=== PATIENT | male | born 1950 | race Caucasian/White ===

== ENCOUNTER 2025-05-07 00:31 | Emergency (ER) | payer MEDICARE, SELFPAY ==
[2025-05-07] VITALS (13 sets, daily range): BP systolic 112–163; BP diastolic 52–63; PULSE 74–103; RESP 16–25; TEMP 36.8–37.3; O2SAT 95–100
--- NOTE | ~2025-05-07 | CT_ITS ---
Clinical Indication: Shortness of breath, tachycardia, chest mass CT Scan of the Chest with Contrast: Technique: Contiguous sections were acquired throughout the chest after intravenous administration of 100 cc of Omnipaque 350. Dose reduction technique was used on this scan by utilizing automated expos ure control and iterative reconstruction technique. The dose-length product (DLP) was 192.14 mGy-cm. Findings: There is no evidence of any significant mediastinal, hilar or axillary lymphadenopathy. There is no f illing defect in the pulmonary arterial tree to suggest pulmonary embolus. There is no evidence of ao rtic dissection or aneurysm. There is no evidence of pleural or pericardial effusion. There is advanced emphysema. There is extensive calcified pleural plaque at the left upper lobe anter iorly and left lower lobe posteriorly. There is mild chronic scarring in the left lung. 9 mm right ap ical pulmonary nodule present (axial image 27). Additional 6 mm right upper lobe nodule present (axia l image 42). There is probable posterior scarring at the right upper lobe/apex. Scattered calcified g ranulomas are noted. Images through the upper abdomen reveal no abnormalities. Impression: No evidence of pulmonary embolus, aortic dissection, or aortic aneurysm. 9 mm right apical pulmonary nodule, indeterminate. According to Fleischner Society criteria, recommen d 3 month follow-up CT versus PET/CT or tissue sampling. Additional 6 mm nodule in the right upper lobe, also indeterminate. Follow-up exam in 6-12 months rec ommended at a minimum. Advanced emphysema with extensive calcified pleural plaques in the left hemithorax and areas of focal scarring, as above. Reviewed, dictated and finalized at [facility]. Impression: No evidence of pulmonary embolus, aortic dissection, or aortic aneurysm. 9 mm right apical pulmonary nodule, indeterminate. According to Fleischner Soci ety criteria, recommend 3 month follow-up CT versus PET/CT or tissue sampling. Additional 6 mm nodule in the right upper lobe, also indeterminate. Follow-up e xam in 6-12 months recommended at a minimum. Advanced emphysema with extensive calcified pleural plaques in the left hemitho rax and areas of focal scarring, as above.
--- NOTE | ~2025-05-07 | XR_ITS ---
Clinical Indication: Shortness of breath, COPD PA and lateral views of the chest: Comparison: None Findings: The there is COPD pattern of the lungs. Probable extensive calcified plaque or old fibrotho rax in the left hemithorax. Cardiomediastinal silhouette is within normal limits. Bones and soft tiss ues are unremarkable. Impression: COPD. 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 Reviewed, dictated and finalized at location [facility]. Impression: COPD. 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
--- OUTSIDE RECORDS SUMMARY | 2025-05-07 00:34 | XMS_ITS | Encounter Summary ---
Author Organization [facility] Address Critical access hospital[address] [place] [address] Care Team Providers Care Commercial Technician Name Role Phone Shanta Azar MD Primary Care Provider [phone] Annette Hernandez [facility] Primary Care Provider Encounter Details Date Type Department Care Team (Late Contact Info) Description 2022 Prep for Procedure [facility] [address] [place], [place] [id number] Raul Rock MD [address] [place] [address] [id number] Social History Tobacco Use Types Packs/Day Years Used Date Smoking Tobacco: Every Day Cigarettes 0.5 30 Smokeless Tobacco: Never Chew Alcohol Use Standard Drinks/Week Comments Yes 0 (1 standard drink = 0.6 oz pur e alcohol) daily Sex and Gender Information Value Date Recorded Sex Assigned at Male 12/03/2024 11:28 AM TRAVEL SERVICE CONSULTANT Legal Sex Male 9:45 AM CDT Gender Identity Not on file Sexual Orientation Not on file 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 Not on file Not on file Not on jerson e documented as of this encounter Plan of Treatment Upcoming Encounters Date Type Department Care Team (Late Contact Info) Description 05/16/2025 10:30 AM CDT Appointment [facility] [address] [place] [address] Hernan Dunbar MD [facility] [address] [place] [address] 06/11/2025 9:40 AM CDT Office Visit [facility] - [address] [place] [address] Hernan Dunbar MD [facility] [address] [place] [address] documented as of this encounter Results * (ABNORMAL) CORONAVIRUS (COVID 19) PCR (06/11/2022 8:52 AM CDT) SPEC DESCRIPTION NASAL 06/11/20 8:48 AM CDT [facility] CORONAVIRUS SARS COV 2 PCR (RESP) POSITIVE(A A) NEGATIVE 06/12/2022 1:54 PM CDT [facility] Comment: THE SARS-CoV-2 TEST HAS BEEN AUTHORIZED BY THE FDA UNDER AN EUA FOR USE BY AUTHORIZED LABORATORIES. PERFORMED BY NUCLEIC ACID AMPLIFICATION PCR FIRST TEST UNKNOWN 06/11/2022 8:48 AM CDT [facility] EMPLOYED IN HEALTHCARE NO 06/11/2022 8:48 AM CDT [facility] SYMPTOMATIC DEFINED BY CDC NO 06/11/2022 8:48 AM CDT [facility] HOSPITALIZATION STATUS NO 06/11/2022 8:48 AM CDT [facility] NO 06/11/2022 8:48 AM CDT [facility] NASAL STRUCTURE / Unknown 06/11/2022 8:52 AM CDT Raul Rock MD MICROBIOLOGY - GENERAL ORDERABLE S Final Result [facility] [address] [place] [address], [facility] [address] [place] [address], documented in this encounter Visit Diagnoses Diagnosis Preop testing- Primary Preoperative examination, unspecified documented in this encounter Additional Health Concerns Infection Onset Date Last Indicated Resolved Time COVID-19 Rule Out 06/11/2022 06/11/2022 06/12/2022 1:54 PM CDT COVID-19 Confirmed 06/11/2022 06/11/2022 12:33 AM CDT COVID-19 Rule Out 01/05/2023 01/05/2023 01/05/2023 9:59 PM TRAVEL SERVICE CONSULTANT documented as of this encounter Care Teams Commercial Technician Relationship Specialty Start Date End Date Shanta Azar MD [address] [place] [address] PCP - General INTERNAL MEDICINE 03/04/22 01/04/23 Annette Hernandez, ANP- [address] [place] [address] PCP - General FAMILY PRACTICE 01/05/23 documented as of this encounter
--- OUTSIDE RECORDS SUMMARY | 2025-05-07 00:34 | XMS_ITS | Encounter Summary ---
Author Organization [facility] Address [address] [place] [address] Care Team Providers Care Tree Pruner Name Role Phone Avi Bonds MD Primary Care Provider [phone] Gasper Gauthier MD [facility] Shnata Parrish MD Primary Care Provider [phone] Annette Hernandez [facility] Primary Care Provider Encounter Details Date Type Department Care Team (Late st Contact Info) Description 03/16/2017 Abstract [facility] [address] [place] [address] Gasper Gauthier MD Social History Tobacco Use Types Packs/Day Years Used Date Smoking Tobacco: Every Day Alcohol Use Standard Drinks/Week Comments Yes 0 (1 standard drink = 0.6 oz pur e alcohol) daily Sex and Gender Information Value Date Recorded Sex Assigned at Male 12/03/2024 11:28 AM MATRIX DRIER TENDER Legal Sex Male 9:45 AM CDT Gender Identity Not on file Sexual Orientation Not on file 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 Not on file Not on jerson e documented as of this encounter Plan of Treatment Upcoming Encounters Date Type Department Care Team (Late st Contact Info) Description 05/16/2025 10:30 AM CDT Appointment [address] [place], [place] [id number] Hernan Dunbar MD [facility] [address] [place] [address] 06/11/2025 9:40 AM CDT Office Visit [facility] Pulmonology Specialty Clinic - [address] [place] [address] Hernan Dunbar MD [facility] [address] [place] [address] documented as of this encounter Visit Diagnoses Not on filedocumented in this encounter Additional Health Concerns Infection Onset Date Last Indicated Resolved Time COVID-19 Rule Out 06/11/2022 06/11/2022 06/12/2022 1:54 PM CDT COVID-19 Confirmed 06/11/2022 06/11/2022 12:33 AM CDT COVID-19 Rule Out 01/05/2023 01/05/2023 01/05/2023 9:59 PM MATRIX DRIER TENDER documented as of this encounter Care Teams Tree Pruner Relationship Specialty Start Date End Date Avi Bonds MD [address] [place] [address] PCP - General FAMILY PRACTICE 03/14/17 04/29/20 Shanta Azar MD [address] [place] [address] PCP - General INTERNAL MEDICINE 03/04/22 01/04/23 Annette Hernandez, BANNER- [address] [place] [address] PCP - General FAMILY PRACTICE 01/05/23 Gasper Gauthier MD [address] [place] [address] CARDIOVASCULAR DISEASE 03/14/1703/03 documented as of this encounter
--- OUTSIDE RECORDS SUMMARY | 2025-05-07 00:34 | XMS_ITS | Patient Health Record ---
Author Organization [facility] Address [address] [place] [address] Care Team Providers Care Information Technology Professor Name Role Phone Annette Hernandez Primary Care Provider [phone] Dr. Angeles Masters Unavailable [phone] Luiz Dooley Unavailable [phone] Migration, Provider Unavailable Unavailable Allergies Allergen (clinical drug ingredient) Drug/Non Drug Allergy documented on EMR Reaction Allergy Type Onset Date Status Medicinal product containing thiazide and acting as diuretic agent (product) Thiazide-Type Diuretics Hyponatremia Drug Allergy 02/02/2024 Inactive Results Component Value Reference Range Flag Notes PSA Annual Screening (Not ye t reviewed by provider) Interpretation: Performing Lab: Notes/Report: Test Performed by: Saida Manzano [place] [id number] Funnel Setter: Willis Booth DO PSA Total 4.35 0.00-4.00 ng/mL H Chest X-ray PA and lateral Reviewed date:12/09/2024 04:07:19 PM Interpretation: Performing Lab: Notes/Report: Patient Health Questionnaire (PHQ9) Reviewed date:05/27/2024 12:00:00 AM Interpretation: Performing Lab: Notes/Report: Feeling bad about yourself o r that you are a failure or have let yourself or your family down 0 Feeling down, depressed, or hopeless 0 Feeling tired or having little energy 0 If you checked off any probl ems, how difficult Not difficult at all have these problems made it for you to do your work, take care of things at home, or get along with other people? 0 Little interest or pleasure in doing things 0 Moving or speaking so slowly that other people could have noticed or the opposite being so figety or restless that you have been moving around a lot more than usual 0 Poor appetite or overeating 0 Thoughts that you would be b piyush off , or of hurting yourself 0 Trouble concentrating on thi ngs, such as reading the newspaper or watching television 0 Trouble falling or staying a sleep, or sleeping too much 0 AUDIT-C Reviewed date:05/27/2024 12:00:00 AM Interpretation: Performing Lab: Notes/Report: How many standard drinks con taining alcohol do you have on a typical day? N/A How often do you have 6 or more drinks on 1 occasion Never How often do you have a drink containing alcohol Never Total Score 0 Reason For Referral No Information Medications Medication SIG (Take, Route, Frequency, Duration) Notes Start Date End Date Status Rosuvastatin Calcium 20 MG Tablet 1 Oral every night at bedtime; Duration: 0 02/06/2024 Active Vitamin D3 oral; Duration: 0 *Pick strength -form from [facility] for eRX* 01/12/2023 Active Vitamin B-12 oral; Duration: 0 *Pick strength -form from [facility] for eRX* 01/12/2023 Active amLODIPine Besylate 2.5 MG Tablet 1 tablet Orally twice a day; Duration: 90 days Active Zinc-15 oral; Duration: 0 *Reorder from [facility] for eRx and Interaction Alerts* 01/12/2023 Active Tamsulosin HCl 0.4 MG Capsule 1 capsule Orally Once a day; Duration: 90 days every evening 12/03/2024 Active Escitalopram Oxalate 10 MG Tablet Take 1 tablet by mouth once daily; Duration: 90 days Active Spiriva HandiHaler 18 MCG Capsule 1 capsule by inhaling the contents of the capsule using the HandiHaler device Inhalation Once a day Active Losartan Potassium 100 MG Tablet 1 tablet Orally Once a day Active Vitamin C oral; Duration: 0 *Pick strength -form from [facility] for eRX* 02/02/2024 Active Wixela Inhub 250-50 MCG/ACT Aerosol Powder Breath Activated 1 puff Inhalation Twice a day Active Immunizations Vaccine Route Administration Date Status Comme nts Zoster IM Intramuscular 07/28/2023 Administered ,sourc ename : New immunization record ,immstatus : Complete Zoster IM Intramuscular 02/02/2024 Administered ,sourc ename : New immunization record ,immstatus : Complete Tdap Unknown 08/02/2023 Administered [facility] ,sourcename : Historical information -from other registry Source VFC Code: : RSV-MAb (Respiratory syncytial virus immune globulin) IM Intramuscular 05/27/2024 Administered ,sourcename : New immunization record ,immstatus : Complete Pneumococcal conjugate PCV 13 Unknown 01/08/2014 Administered [facility] ,sourcename : Historical information -from other registry Source VFC Code: : Influenza, high-dose seasonal, quadrivalent, preservative free >65 yrs IM Intramuscular 09/11/2021 Administered ,sourcename : N ew immunization record ,immstatus : Complete Influenza, high-dose seasonal, quadrivalent, preservative free >65 yrs IM Intramuscular 09/02/2023 Administered ,sourcename : N ew immunization record ,immstatus : Complete Influenza, high dose seasonal IM Intramuscular 09/12/2024 Administered ,sourcename : N ew immunization record ,immstatus : Complete Social History Social History Additional Details Category Social Info Options Details Migrated Social History Migrated Social History Tobacco history:Current every day smoker ,notes : 1/2 pack smoker for 50 years , Alcohol use: None , Problems Problem Type SNOMED Code ICD Code Onset Dates Problem Status W/U Status Risk Notes Problem BMI less than 20 (988642182) Body mass index (BMI) 19 or less, adult (Z68.1) 05/27/20 24 Active confirmed Problem Tobacco use (364613132) Tobacco use (Z72.0) 01/12/20 Active confirmed Problem Pneumonia (358543565) Pneumonia, unspecified organism (J18.9) 01/12/20 23 Active confirmed Problem Hypo-osmolality and or hyponatremia (585786850) Hypo-osmolality and hyponatremia (E87.1) 01/12/20 23 Active confirmed Problem Vitamin B deficiency (16114387) Deficiency of other specified B group vitamins (E53.8) 01/26/20 Active confirmed Problem Chronic cough (76338027) Chronic cough (R05.3) 02/04/20 23 Active confirmed Problem Screening for malignant neoplasm of prostate (991992627) Encounter for screening for malignant neoplasm of prostate (Z12.5) 01/26/20 24 Active confirmed Problem Acute hypoxemic respiratory failure (243038768) Acute respiratory failure with hypoxia (J96.01) 06/27/20 24 Active confirmed Problem Atherosclerotic heart disease of [place] coronary artery without angina pectoris (870058325005443) Atherosclerotic heart disease of [place] coronary artery without angina pectoris (I25.10) 03/01/20 23 Active confirmed Problem Major depression, single episode (68613161) Major depressive disorder, single episode, unspecified (F32.9) 02/02/20 24 Active confirmed Problem Vaccination given (981187212) Encounter for immunization (Z23) 09/02/20 23 Active confirmed Problem Adult health examination (475307670) Encounter for general adult medical examination without abnormal findings (Z00.00) 05/27/20 24 Active confirmed Problem Solitary pulmonary nodule (600874084) Solitary pulmonary nodule (R91.1) 05/27/20 24 Active confirmed Problem Hyperglycemia (61739021) Hyperglycemia, unspecified (R73.9) 01/26/20 24 Active confirmed Problem Retention of urine (115494305) Other retention of urine (R33.8) 06/27/20 24 Active confirmed Problem Atherosclerosis of coronary artery (055801785) Coronary atherosclerosis due to calcified coronary lesion (I25.84) 03/01/20 23 Active confirmed Problem Essential hypertension (62926112) Essential (primary) hypertension (I10) 01/12/20 23 Active confirmed Problem Impacted cerumen (84516084) Impacted cerumen, unspecified ear (H61.20) 06/27/20 24 Active confirmed Problem Hyperlipidemia (77673734) Hyperlipidemia, unspecified (E78.5) 02/02/20 24 Active confirmed Problem Vitamin D deficiency (10932936) Vitamin D deficiency, unspecified (E55.9) 01/26/20 24 Active confirmed Problem Emphysema (57424607) Emphysema, unspecified (J43.9) 01/12/20 23 Active confirmed Vital Signs Heart Rate 84 /min 04/29/2025 Temperature 97.2 degrees Fahrenheit 04/29/2025 Respiratory Rate 20 /min 03/14/2025 Blood pressure diastolic 68 mm Hg 04/29/2025 Oximetry 89 % 04/29/2025 Height-cm 170.18 cm 04/29/2025 Weight-kg 52.12 kg 04/29/2025 Height 67.00 in 04/29/2025 Blood pressure systolic 140 mm Hg 04/29/2025 Weight 114.9 lbs 04/29/2025 BMI 17.99 kg/m2 04/29/2025 Encounters Encounter Location Date Provider Diagnosis [address] [address] 12/04/[address] [address] 01/02/[address] [address] 01/16/[address] [address] 04/10/[address] [address] 04/21/2025 Annette Hernandez Urinary frequency R35.[address] [address] 04/28/[address] [address] 09/12/2024 Dr. Angeles Masters Tobacco use Z72.0 an d Encounter for immunization Z23 [address] [address] 05/27/2024 Annette Hernandez Body mass index (BMI ) 19 or less, adult Z68.1 ; Major depressive disorder, single episode, unspecified F32.9 ; Encounter for general adult medical examination without abnormal findings Z00.00 ; Essential (primary) hypertension I10 ; Tobacco use Z72.0 ; Emphysema, unspecified J43.9 ; Solitary pulmonary nodule R91.1 and Encounter for immunization Z23 [address] [address] 12/03/2024 Annette Hernandez Stage 4 very severe COPD by GOLD classification J44.9 ; Oxygen dependent Z99.81 ; Essential (primary) hypertension I10 ; Hyperlipidemia, unspecified E78.5 ; Major depressive disorder, single episode, unspecified F32.9 ; Solitary pulmonary nodule R91.1 ; Tobacco use Z72.0 and Urinary frequency R35.[address] [address] 04/29/2025 Luiz Soumya Urinary retention R33.9 ; Encounter for screening for malignant neoplasm of prostate Z12.5 and Emphysema, unspecified J43.[address] [address] 03/14/2025 Annette David Essential (primary) hypertension I10 and Emphysema, unspecified J43.[address] [address] 06/27/2024 Dr. Angeles Masters Tobacco use Z72.0 ; Acute respiratory failure with hypoxia J96.01 ; Impacted cerumen, unspecified ear H61.20 ; Other retention of urine R33.8 ; Solitary pulmonary nodule R91.1 ; Essential (primary) hypertension I10 and Emphysema, unspecified J43.[address] [address] 10/19/2024 Provider Migration [address] [address] 10/20/2024 Provider Migration Assessments Encounter Date Diagnosis (ICD Code) Assessment Notes Treatment Notes Treatment Clinical Notes Section Notes 05/27/2024 Major depressive disorder, single episode, unspecified (ICD-10 - F32.9) 05/27/2024 Essential (primary) hypertension (ICD-10 - I10) 05/27/2024 Emphysema, unspecified (ICD-10 - J43.9) 05/27/2024 Solitary pulmonary nodule (ICD-10 - R91.1) 05/27/2024 Encounter for general adult medical examination without abnormal findings (ICD-10 - Z00.00) 05/27/2024 Encounter for immunization (ICD-10 - Z23) 05/27/2024 Tobacco use (ICD-10 - Z72.0) 05/27/2024 Body mass index (BMI) 19 or less, adult (ICD-10 - Z68.1) 06/27/2024 Impacted cerumen, unspecified ear (ICD-10 - H61.20) 06/27/2024 Essential (primary) hypertension (ICD-10 - I10) 06/27/2024 Emphysema, unspecified (ICD-10 - J43.9) 06/27/2024 Acute respiratory failure with hypoxia (ICD-10 - J96.01) 06/27/2024 Other retention of urine (ICD-10 - R33.8) 06/27/2024 Solitary pulmonary nodule (ICD-10 - R91.1) 06/27/2024 Tobacco use (ICD-10 - Z72.0) 09/12/2024 Encounter for immunization (ICD-10 - Z23) 09/12/2024 Tobacco use (ICD-10 - Z72.0) 12/03/2024 Stage 4 very severe COPD by GOLD classification (ICD-10 - J44.9) - Persistent cough and dyspnea despite previous treatment with prednisone and Z-Joseph. Oxygen saturation around 94%. He is thin and calorie expenditure is high due to breathing and he finds himself purse lip breathing regularly-His breathing worsens w/ the cold. He seen Dr. Dunbar on 11/22/24, but he was on steroids at that time and no changes wer done. - Administer a steroid shot today, followed by a 13-day prednisone taper. Consider another round of antibiotics. Order a chest X-ray. Discuss with Dr. Dunbar about different management. - Patient requested a small dose of prednisone for a couple of months; discussed concerns about side effects, including diabetes risk, bone thinning, and adrenal gland suppression.- Risks and side effects: Discussed risks of long-term prednisone use, including diabetes risk, bone thinning, and adrenal gland suppression. 12/03/2024 Oxygen dependent (ICD-10 - Z99.81) - He has oxygen at home that he uses PRN up to 1L. He feels like it is helpful 03/14/2025 Essential (primary) hypertension (ICD-10 - I10) - Blood pressure management is complicated by difficulty in splitting amlodipine tablets. Current dosage is 5 mg, but splitting to 2.5 mg twice daily was recommended by Dr. Masters.- Will change prescription to 2.5 mg amlodipine tablets to be taken twice daily to avoid the need for splitting pills. Prescription sent to [facility] pharmacy. Advise Guillermo to monitor his blood pressure regularly to ensure stability with the new dosing regimen. 03/14/2025 Emphysema, unspecified (ICD-10 - J43.9) - Breathing difficulties and shortness of breath are persistent, with no significant improvement from previous treatments. No sinusitis or chest pain reported. Oxygen levels are stable at 95%.- Administer a steroid shot followed by oral steroids starting the next morning. Prescribe a Z-Joseph. Continue using the nebulizer at home. Monitor oxygen levels during physical activity to assess the need for supplemental oxygen. He follows with Dr. Dunbar, but doesn't have an appt until May 2025.-Continue Wixhela and Duonebs. 04/21/2025 Urinary frequency (ICD-10 - R35.0) 04/29/2025 Encounter for screening for malignant neoplasm of prostate (ICD-10 - Z12.5) 04/29/2025 Urinary retention (ICD-10 - R33.9) - Urinary retention possibly due to prostate issues, acute or chronic enlargement. Tamsulosin prescribed to help with urination. Past PSA was 3.28.- Continue with tamsulosin. Follow-up with urologist to assess the need for continued use and to manage catheter removal. Will need voiding trial through urology. - PSA elevated, seeing urology already, could be due to acute placement of catheter.- Risks and side effects: tamsulosin may cause dizziness and low blood pressure, monitor for these side effects.- Risk of infection due to catheter presence.- Maintain catheter hygiene, wash regularly, and follow provided care instructions. Monitor for signs of infection. - COPD with baseline dyspnea, no significant changes noted. Continue current inhaler regimen (Tiotropium and Wixela). Monitor oxygen levels, took O2 during visit and it maintained 94%. 04/29/2025 Emphysema, unspecified (ICD-10 - J43.9) 12/03/2024 Essential (primary) hypertension (ICD-10 - I10) - BP is very elevated today. Continue amlodipine 5mg BID and losartan 100mg daily. Starting tamsulosin 0.4mg for urinary frequency and will see if that makes a difference w/BP too 12/03/2024 Hyperlipidemia, unspecified (ICD-10 - E78.5) -Tolerating statin. Will check lipid panel 12/03/2024 Major depressive disorder, single episode, unspecified (ICD-10 - F32.9) - Tolerating escitalopram, feels it is working well 12/03/2024 Solitary pulmonary nodule (ICD-10 - R91.1) - Biopsy was done and it was benign. Serial imaging shows it is getting smaller. Due for next CT scan in April [address] Dunbar in May 2025 12/03/2024 Tobacco use (ICD-10 - Z72.0) - He is trying to cut back, down to less than 1 pack per day 12/03/2024 Urinary frequency (ICD-10 - R35.0) He is up a couple of times a night and he feels like he is urinating frequently. Will add tamsulosin at bedtime to see if that will be helpful. Concern for possible Trelegy causing problems.Benefit s outweigh the risks to continue Trelegy Plan Of Treatment Pending Test Test Name Order Date PSA Annual Screening 04/29/2025 Next Appt Details Provider Name:Annette chavez, 05/30/2025 09:30:00 AM, [address] [place], [address], [phone] Insurance Providers Payer Name Payer Address Payer Phone Subscriber Number Group Number Insured Name Patient Relationship to Insured Coverage Start Date Coverage End Date NGS Medicare RHC [address] [place] [address] [id number] Guillermo Beckwith Self - patient is the insured 2 [employer] [address] [place] [address] [id number] Guillermo Beckwith Self - patient is the insured 2 [facility] Medicare B [address] [place] [address] [id number] Guillermo Beckwith Self - patient is the insured 2 Medications Administered Medication Instructions Date of Administration Dosage Notes dexAMETHasone 12/03/2024 6 mg dexAMETHasone 03/14/2025 6 mg Medical (General) History Medical History History ICD Code Vitamin D deficiency, unspecified E55.9 Deficiency of other specified B group vi tamins E53.8 Hyperlipidemia, unspecified E78.5 Hypo-osmolality and hyponatremia E87.1 Major depressive disorder, single episod e, unspecified F32.9 Essential (primary) hypertension I10 Atherosclerotic heart diseas e of [place] coronary artery without angina pectoris I25.10 Coronary atherosclerosis due to calcifie d coronary lesion I25.84 Emphysema, unspecified J43.9 Acute respiratory failure with hypoxia J 96.01 Hyperglycemia, unspecified R73.9 Solitary pulmonary nodule R91.1 Tobacco use Z72.0 Surgical History Surgery Date(Month/Year) Colonoscopy cholecystecomy 1988 Hernia repair ,notes : right inguinal x2 2006 Bronchoscopy 06/18/2024
--- NOTE | 2025-05-07 00:47 | PC.NURSE ---
Bladder scan upon pt's arrival is 200 ml. Bladder scan after unkinking catheter tubing and draining urine is 1 ml.
--- NOTE | 2025-05-07 00:48 | PC.NURSE ---
This rn found pt catheter to be clamped. RN unclamped catheter and it immediately started draining. PT bladder scan was >200, down to 1ml.
--- NOTE | 2025-05-07 00:56 | ECG_ITS ---
Test Date: 2025-05-07 01:50:12 Measurements Intervals [place] Rate: 84 P: 78 WI: 137 QRS: 74 QRSD: 93 T: 41 QT: 372 QTc: 442 Interpretive Statements SINUS RHYTHM POSSIBLE LEFT ATRIAL ENLARGEMENT DELAYED PRECORDIAL R/S TRANSITION BASELINE ARTIFACT- I, II, III, AVR, AVL, AVF, V1-V6 BORDERLINE ECG No previous ECG available for comparison Electronically Signed On 05-07-2025 06:21:22 CDT by Aldair Harden D.O.
--- NOTE | 2025-05-07 01:00 | ED_ITS ---
HPI - Male Genitourinary General Chief complaint: Urogenital-Male Stated complaint: urinary retention - catheter in place Time Seen by Provider: 05/07/25 00:40 Source: patient and family Mode of arrival: ambulatory Limitations: no limitations History of Present Illness HPI Narrative: This is a 74 year old male that presents to the ER for urinary catheter problems. Reports today his catheter has not been draining much. He was unable to sleep tonight due to bladder spasms. He additionally reports he has been more short of breath than usual. He wears oxygen as needed for COPD. Over the last couple of days he has needed it at all times. Denies fevers, cough, vomiting. Related Data Allergies Allergy/AdvReac Type Severity Reaction Status Date / Time No Known Allergies Allergy Verified 05/07/25 00:32 Review of Systems 2 Review of Systems: All systems reviewed & are unremarkable except as noted in HPI and below PMFSH Past Medical History Medical History (Updated 05/07/25 @ 03:20 by Lisa Su PA-C) History of hypertension History of COPD Social History Social History (Updated 05/07/25 @ 01:04 by Lisa Su PA-C) Smoking status: Current every day smoker Exam 2 Narrative: GENERAL: Elderly, well-nourished, and in no acute distress. HEAD: Normocephalic, atraumatic. EYES: EOMI. ENT: Nares clear, no rhinorrhea or epistaxis. Mucous membranes moist. Oropharynx without tonsillar hypertrophy exudate or other lesions. Bilateral TMs pearly hernandez non-bulging NECK: Supple. No adenopathy or masses. CHEST: No respiratory distress. Lung sounds diminished bilaterally with rales at the bases. No wheezes or rhonchi HEART: Regular rate and rhythm. No murmur heard. Normal peripheral pulses. ABDOMEN: Soft, nontender, nondistended, normal active bowel sounds. EXTREMITIES: Normal range of motion. Non-pitting edema to the bilateral lower extremities SKIN: Warm, dry, no rash. NEURO: No focal deficits. Alert and oriented x3. PSYCH: Normal mood and affect Course Course Emergency Course: patient and family updated on workup and agree with plan of care. Patient with improvement after nebulizer treatment, steroid Vital Signs Vital signs: Vital Signs Temperature 99.1 F 05/07/25 00:37 Pulse Rate 103 H 05/07/25 00:37 Respiratory Rate 25 H 05/07/25 00:37 Blood Pressure 163/63 H 05/07/25 00:37 Pulse Oximetry 98 05/07/25 00:37 Oxygen Delivery Nasal Cannula 05/07/25 00:37 Oxygen Flow Rate 1 05/07/25 00:37 Temperature 99.1 F 05/07/25 00:37 Pulse Rate 75 05/07/25 02:57 Respiratory Rate 16 05/07/25 02:57 Blood Pressure 128/61 05/07/25 02:46 Pulse Oximetry 96 05/07/25 02:47 Oxygen Delivery Nasal Cannula 05/07/25 00:37 Oxygen Flow Rate 1 05/07/25 00:37 MDM - Male Genitourinary MDM Narrative Medical decision making narrative: Patient presents to the emergency department for blocked Santana catheter. Nursing staff noted kink in his tubing. Catheter was replaced. Is draining well. Patient also had endorsed shortness of breath, increased oxygen requirements. He is afebrile and nontoxic appearing. Tachycardic and tachypneic upon arrival, this improved with management of his COPD exacerbation. Cbc without leukocytosis. Metabolic panel with normal appearing kidney function. BNP is not concerningly elevated. Urine with evidence of infection. This will be sent for culture. Patient will be started on oral antibiotics. CTA chest PE obtained for further evaluation. No PE or evidence for pneumonia. Shows calcified pleural plaques, lung nodules. Patient given nebulizer treatment, steroids with improvement. Patient and his family were updated on workup and agree with plan of care. Instructed to have further follow-up with his primary provider and urologist. He was given warnings to return to the ER Differential Diagnosis Differential diagnosis: Likely urinary tract infection and other (COPD exacerbation, CHF, pneumonia, Santana catheter malfunction) Lab Data Attestation: I reviewed the patient's lab results. 05/07/25 01:04 05/07/25 01:04 Labs: Lab Results 05/07/25 Range/Units 01:04 WBC 8.9 (4.5-10.0) K/mm3 RBC 3.99 L (4.6-6.20) M/mm3 Hgb 11.8 L (14.0-18.0) g/dL Hct 37.9 L (42.0-52.0) % MCV 95.0 (80-100) fl MCH 29.6 (26-34) pg MCHC 31.1 L (32-36) g/dl RDW 14.8 H (11.5-14.5) % Plt Count 204 (150-375) k/mm3 MPV 9.5 (7.4-10.4) fl Immature Gran % (Auto) 0.6 H (0-0.5) % Neut % (Auto) 77.9 H (45.5-73.1) % Lymph % (Auto) 7.4 L (18.3-44.2) % Mitchell % (Auto) 12.9 H (2.6-8.5) % Eos % (Auto) 0.9 (0-4.4) % Baso % (Auto) 0.3 (0.2-1.2) % Lymph # (Auto) 0.66 L (0.9-3.2) K/mm3 Mitchell # (Auto) 1.2 H (0.1-0.6) K/mm3 Eos # (Auto) 0.1 (0-0.3) K/mm3 Baso # (Auto) 0.0 (0.0-0.1) K/mm3 Abs Immat Gran (auto) 0.05 H (0.00-0.031) K/mm3 Absolute Neuts (auto) 6.9 H (1.3-6.7) K/mm3 Absolute Nucleated RBC 0.000 (0.0-0.012) K/mm3 Nucleated RBC % 0.0 (0.0-0.2) % PT 13.8 (11.1-14.7) Seconds INR 1.0 APTT 28.2 (22.3-36.8) Seconds Sodium 131 L (137-145) mmol/L Potassium 3.6 (3.4-5.0) mmol/L Chloride 90 L (98-107) mmol/L Carbon Dioxide 37 H (22-30) mmol/L Anion Gap 4 (4-12) mmol/L BUN 15 (9-20) mg/dL Creatinine 0.62 L (0.7-1.3) mg/dL Estim Creat Clear Calc 67 ml/min Estimated GFR > 60 (59 - ) Glucose 145 H (65-110) mg/dL Calcium 8.6 (8.4-10.2) mg/dL Total Bilirubin 0.3 (0.2-1.3) mg/dL AST 44 (17-59) U/L ALT 43 (6-50) U/L Alkaline Phosphatase 75 (38-126) U/L NT-Pro-B Natriuret Pep 325 H (19.9-100) pg/mL Total Protein 6.0 L (6.3-8.2) g/dL Albumin 3.3 L (3.5-5.1) g/dL Urine Color Yellow (Yellow) Urine Appearance Turbid H (Clear) Urine pH 6.0 (5.0-9.0) Ur Specific [place] > 1.045 H (1.001-1.035) Urine Protein 2+ H (Negative) mg/dL Urine Glucose (UA) Negative (Negative) mg/dL Urine Ketones Negative (Negative) mg/dL Ur Blood (Man) 2+ H (Negative) Urine Nitrate Negative (Negative) Urine Bilirubin Negative (Negative) Urine Urobilinogen 1.0 (<2.0) mg/dL Add Ur Microanalysis Reviewed Leukocyte Esterase Rfl 2+ H (Negative) SINGH/UL Urine RBC 21-50 H (0-2) /hpf Urine WBC >100 H (0-3) /hpf Ur Squamous Epith Cells None seen (Few) /hpf Urine Bacteria None seen /hpf Urine Casts 0-2 Urine Yeast (Budding) Present H (None) /hpf Imaging Data Radiologist's impression: Chest x-ray: Emphysematous lung disease. Calcified pleural plaques in the left thorax. Calcification of the thoracic aorta CTA chest PE: No PE. Calcified pleural plaques bilaterally in the thorax. Emphysematous lung disease. No acute pneumonia. Lung nodules in the right upper lobe Critical Care Time Critical Care Time Critical Care Time: No Discharge Plan Discharge Clinical Impression: COPD exacerbation Blocked urinary catheter Qualifiers: Encounter type: initial encounter Qualified Code(s): T83.098A - Other mechanical complication of other urinary catheter, initial encounter Patient Disposition: Home Condition: Stable Instructions: Santana Catheter Placement and Care (ED), COPD (Chronic Obstructive Pulmonary Disease) (ED) Additional Instructions: Return to the emergency department if you experience fever, chest pain, worsening shortness of breath, abdominal pain with nausea and vomiting, or any other symptoms that are concerning to you. Take oral antibiotic and steroid as prescribed Follow up with your primary care doctor and urologist Patient Language: Georgian Prescriptions: New cefdinir 300 mg capsule 300 mg PO Q12H 5 Days Qty: 10 0RF prednisone 20 mg tablet 40 mg PO DAILY 4 Days Qty: 8 0RF Follow-up/Referrals: Pennie Messina PA-C [Primary Care Provider] -
[2025-05-07 01:10] LABS: Basophils Percent Auto 0.3 % (0.2-1.2); Eosinophils Absolute Auto 0.1 K/mm3 (0-0.3); Eosinophils Percent Auto 0.9 % (0-4.4); Hematocrit 37.9 % (42.0-52.0); Hemoglobin 11.8 g/dL (14.0-18.0); Immature Granulocyte Absolute 0.05 K/mm3 (0.00-0.031); Immature Granulocyte Percent A 0.6 % (0-0.5); Lymphocytes Absolute Auto 0.66 K/mm3 (0.9-3.2); Lymphocytes Percent Auto 7.4 % (18.3-44.2); Mean Corpuscular HGB Conc 31.1 g/dl (32-36); Mean Corpuscular Hemoglobin 29.6 pg (26-34); Mean Platelet Volume 9.5 fl (7.4-10.4); Monocytes Absolute Auto 1.2 K/mm3 (0.1-0.6); Monocytes Percent Auto 12.9 % (2.6-8.5); Neutrophils Absolute Auto 6.9 K/mm3 (1.3-6.7); Neutrophils Percent Auto 77.9 % (45.5-73.1); Platelet Count Result 204 k/mm3 (150-375); Red Blood Count 3.99 M/mm3 (4.6-6.20); Red Cell Distribution Width 14.8 % (11.5-14.5); White Blood Count 8.9 K/mm3 (4.5-10.0)
[2025-05-07 01:19] LABS: Alanine Aminotransferase 43 U/L (6-50); Albumin Level 3.3 g/dL (3.5-5.1); Alkaline Phosphatase 75 U/L (38-126); Anion Gap 4 mmol/L (4-12); Aspartate Amino Transferase 44 U/L (17-59); Bilirubin,Total 0.3 mg/dL (0.2-1.3); Blood Urea Nitrogen 15 mg/dL (9-20); Calcium 8.6 mg/dL (8.4-10.2); Carbon Dioxide 37 mmol/L (22-30); Chloride 90 mmol/L (98-107); Estimated CRCL calculation 67 ml/min; Estimated Glomerular Filt Rate > 60; Glucose 145 mg/dL (65-110); Potassium 3.6 mmol/L (3.4-5.0); Sodium 131 mmol/L (137-145)
--- NOTE | 2025-05-07 01:21 | PC.NURSE ---
pulled medication under wrong patient. medications returned, pulled under correct patient.
[2025-05-07 01:28] LABS: NT Pro B Type Natriuretic Pept 325 pg/mL (19.9-100)
[2025-05-07 01:30] LABS: Prothrombin Time 13.8 Seconds (11.1-14.7)
[2025-05-07 01:31] LABS: Partial Thromboplastin Time 28.2 Seconds (22.3-36.8)
--- OUTSIDE RECORDS SUMMARY | 2025-05-07 01:46 | XMS_ITS | Clinical Summary ---
Author Organization [facility] Address [address] [place] [address] Care Team Providers Care Csr Name Role Phone Annette Hernandez [facility] Primary Care Provider Allergies Active Allergy Reactions Criticality Noted Date Comments Thiazide-Type Diuretics Anxiety Low 02/02/2024 Medications losartan 100 MG tablet Take 1 tablet (100 mg total) by mouth daily. Active vitamin D3, cholecalciferol , 1000 UNIT Tab tablet Take 1 tablet (1,000 Units total) by mouth daily. Active zinc gluconate 50 MG Tab Take 1 tablet (50 mg total) by mouth daily. Active Ascorbic Acid (VITAMIN C) 100 MG tablet Take 1 tablet (100 mg total) by mouth daily. Active B Complex Vitamins (VITAMIN-B COMPLEX OR) Take by mouth daily. Active albuterol sulfate HFA 108 (90 Base) MCG/ACT inhaler Inhale 2 puffs into the lungs every 6 (six) hours as needed for Wheezing. 18 g 3 3 Active tiotropium (SPIRIVA) [address] 1 capsule (18 mcg total) into inhaler and inhale daily. 30 capsule 3 3 Active rosuvastatin (CRESTOR) 20 MG tablet Take 0.5 tablets (10 mg total) by mouth nightly at bedtime. Active fluticasone-gerry meterol (ADVAIR DISKUS) 250-50 MCG/ACT inhaler Inhale 1 puff into the lungs 2 (two) times daily. Active escitalopram (LEXAPRO) 5 MG tablet Take 1 tablet (5 mg total) by mouth daily. 4 Active amLODIPine (NORVASC) 5 MG tablet Take 1 tablet (5 mg total) by mouth daily. 4 Active predniSONE (DELTASONE) 20 MG tablet Take 1 tablet (20 mg total) by mouth daily. 4 Active albuterol (PROVENTIL) (2.5 MG/3ML) 0.083% nebulizer solutionIndicat ions:Chronic obstructive pulmonary disease, unspecified COPD type ([facility]) Take 3 mLs (2.5 mg total) by nebulization every 4 (four) hours as needed. 360 mL 3 5 Active tamsulosin (FLOMAX) 0.4 MG Cap Take 1 capsule (0.4 mg total) by mouth daily. 30 capsule 5 Active Active Problems Problem Noted Date Diagnosed Date Acute hypoxic respiratory failure ([facility]) 06/18/2024 Pneumonia 01/05/2023 History of colon polyps 09/20/2022 Overview (09/20/2022): Added automatically from request for surgery [id number] Colonic mass 09/20/2022 Overview (09/20/2022): Added automatically from request for surgery [id number] Screen for colon cancer 06/06/2022 Overview (06/06/2022): Added automatically from request for surgery [id number] Blood in stool 06/06/2022 Overview (06/06/2022): Added automatically from request for surgery [id number] Encounters Date Type Department Care Team Description 04/26/2025 12:58 PM CDT - 04/26/2025 2:56 PM CDT Emergency [facility] Emergency Services [facility] [place] [address] Pauly Valero MD Urinary Symptoms Discharge Disposition: Home or Self Care (Routine Discharge) 04/26/2025 Travel 04/21/2025 Scan [facility] SRVCS Scanned, [facility] from Last 3 Months Immunizations Immunization Administration Dates Next Due Fluzone High Dose - >Age 65 (Prefilled Syringe) 09/10/2019 Family History Medical History Relation Comments No Known Problems Father Relation Status Comments Father Social History Tobacco Use Types Packs/Day Years Used Date Smoking Tobacco: Every Day Cigarettes 0.5 30 Passive Smoke Exposure: Current Smokeless Tobacco: Never Chew Tobacco Cessation:Ready to Q uit: No; Counseling Given: Yes Alcohol Use Standard Drinks/Week Comments Not Currently 0 (1 standard drink = 0.6 oz pur e alcohol) quit drinking early 2023 [facility] Utilities Answer Date Recorded In the past 12 months has e [employer], gas, oil, or water [employer] threatened to shut off services in your home? No 06/18/2024 Humiliation, Afraid, Rape, and Kick questionnair e Answer Date Recorded Within the last year, have y ou been afraid of your partner or ex-partner? No 06/18/2024 Within the last year, have y ou been humiliated or emotionally abused in other ways by your partner or ex-partner? No Within the last year, have y ou been kicked, hit, slapped, or otherwise physically hurt by your partner or ex-partner? No 06/18/2024 Within the last year, have y ou been raped or forced to have any kind of sexual activity by your partner or ex-partner? No 06/18/2024 Social Connection and Isolat ion Panel [NHANES] Answer Date Recorded In a typical week, how many times do you talk on the phone with family, friends, or neighbors? More than three times a week 01/05/2023 How often do you get togethe r with friends or relatives? More than three times a week 01/05/2023 How often do you attend chur ch or jehovah's witness services? More than 4 times per year 01/05/2023 Do you belong to any clubs o r organizations such as hoahaoism groups, unions, fraternal or athletic groups, or school groups? No 01/05/2023 How often do you attend meet ings of the clubs or organizations you belong to? Never 01/05/2023 Are you , , di vorced, , never , or living with a partner? 01/05/2023 AUDIT-C Answer Date Recorded Q1: How often do you have a drink containing alcohol? Never 01/05/2023 Q2: How many drinks containi ng alcohol do you have on a typical day when you are drinking? Patient does not drink Q3: How often do you have si x or more drinks on one occasion? Never 01/05/2023 Overall Financial Resource Strain (CARDIA) Answe r Date Recorded How hard is it for you to pa y for the very basics like food, housing, medical care, and heating? Not hard at all 06/18/2024 [facility] Occupat ional Health - Occupational Stress Questionnaire Answer Date Recorded Do you feel stress - tense, restless, nervous, or anxious, or unable to sleep at night because your mind is troubled all the time - these days? Not at all 01/05/2023 Hunger Vital Sign Answer Date Recorded Within the past 12 months, y ou worried that your food would run out before you got the money to buy more. Never true 06/18/20 24 Within the past 12 months, t he food you bought just didn't last and you didn't have money to get more. Never true 06/18/2024 PRAPARE - Transportation Answer Date Re corded In the past 12 months, has l ack of transportation kept you from medical appointments or from getting medications? No 05/22 In the past 12 months, has l ack of transportation kept you from meetings, work, or from getting things needed for daily living? No 06/18/2024 Housing Stability Vital Sign Answer Rizwan e Recorded In the last 12 months, was t here a time when you were not able to pay the mortgage or rent on time? No 01/05/2023 In the last 12 months, how many places have you lived? 1 01/05/2023 In the last 12 months, was t here a time when you did not have a steady place to sleep or slept in a longterm (including now)? No 01/05/2023 Housing Stability Vital Sign Answer Rizwan e Recorded In the last 12 months, was t here a time when you were not able to pay the mortgage or rent on time? No 06/18/2024 In the past 12 months, how m any times have you moved where you were living? 0 06/18/2024 At any time in the past 12 m [facility], were you homeless or living in a longterm (including now)? 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 [employer] Not on file Not on file Not on jerson e Last Filed Vital Signs Vital Sign Reading Time Taken Comments Blood Pressure 136/68 04/26/2025 2:55 PM CDT Pulse 88 04/26/2025 2:55 PM CDT Temperature 36.7 C (98 F) 04/26/2025 2:55 PM CDT Respiratory Rate 18 04/26/2025 2:55 PM CDT Oxygen Saturation 95% 04/26/2025 2:55 PM CDT Inhaled Oxygen Concentration - - Weight 54.4 kg (120 lb) 04/26/2025 1:06 PM CDT Height 170.2 cm (5' 7) 04/26/2025 1:06 PM CDT Body Mass Index 18.79 04/26/2025 1:06 PM CDT Plan of Treatment Upcoming Encounters Date Type Department Care Team (Late st Contact Info) Description 05/16/2025 10:30 AM CDT Appointment [facility] [address] [place] [address] Renata Pascal MD 3 [facility] [address] [place] [address] 06/11/2025 9:40 AM CDT Office Visit [facility] [place] [address] [place] [address] Renata Pascal MD 3 [facility] [address] [place] [address] Health Maintenance Due Date Last Done Comments Hepatitis C 1968 DTaP, Tdap and Td Vaccines (1 - Tdap) 1968 Zoster Vaccines (2 of 3) 11/08/2012 09/13/2012 Pneumococcal Vaccine: 50+ Years (2 of 2 - PPSV23) 03/05/2014 01/08/2014 Annual Medicare Wellness Visit 2014 RSV Immunization or 60+ Years (1 - 1-dose 75+ series) 2024 COVID-19 Vaccine (1 - season) 2024 PHQ-2 (Physician Jewett) 11/20/2024 Colorectal Cancer Screening Colonoscopy (10 Years) 09/27/2032 09/27/2022, 07/05/2022 AAA SCREENING Completed 11/11/2024, 06/21, 06/18/2024, Additional history exists Meningococcal B Vaccine Aged Out No l onger eligible based on patient's age to complete this topic Meningococcal Vaccine Aged Out No jayesh letty eligible based on patient's age to complete this topic RSV Immunizations Under 20 Months Aged Out No longer eligible based on patient's age to complete this topic Medical Devices Implanted Type Area Central Office Frame Wirer Device Identifier Shelf Expiration Date Model / Serial / Lot Clip Resolution 2.8mm 360 235cm 11mm Open - [id number] Implanted:Qty : 3 on 07/05/2022 by Raul Rock MD at [facility] Clip Implant N/A: Descending Colon [employer] 11/12/2023 [id number] / / Procedures Procedure Name Priority Date/Time Associated Diagnosis Comments URINALYSIS AUTO DIP STAT 04/26/2025 1 :45 PM CDT XR CHEST PORTABLE STAT 04/26/2025 1:1 6 PM CDT PRO-BRAIN NATRIURETIC PEPTIDE STAT 04/26/2025 1:15 PM CDT TROPONIN, QUANT STAT 04/26/2025 1:15 PM CDT COMPREHENSIVE METABOLIC PANEL STAT 04/26/2025 1:15 PM CDT CBC W/DIFF AUTOMATED STAT 04/26/2025 1:15 PM CDT ECG 12-LEAD Routine 04/26/2025 1:[address] CHEST WO CONT LOW DOSE Routine 11/11/2024 9:03 AM INSIDE [employer] SALES Solitary pulmonary nodule from Last 3 Months or Most Recently Relevant to Health Maintenance Results * (ABNORMAL) URINALYSIS AUTO DIP (04/26/2025 1:45 PM CDT) COLOR (U) DARK YELLOW(A) YELLOW 04/26/2025 2:04 PM CDT [facility] TRANSPARENCY CLEAR CLEAR 04/26/2025 2:04 PM CDT [facility] SPECIFIC GRAVITY (U) 1.012 1.010 - 1.025 04/26/2025 2:04 PM CDT [facility] U PH 6.5 5.0 - 8.5 04/26/2025 2:04 PM CDT [facility] LEUKOCYTES (U) NEGATIVE NEGATIVE 04/26/2025 2:04 PM CDT [facility] NITRITES 1+(A) NEGATIVE 04/26/2025 2:04 PM CDT [facility] PROTEIN RANDOM (U) TRACE(A) NEGATIVE 04/26/2025 2:04 PM CDT [facility] GLUCOSE (U) NORMAL(A) NEGATIVE 04/26/2025 2:04 PM CDT [facility] KETONES MG/DL (U) NEGATIVE NEGATIVE 04/26/2025 2:04 PM CDT [facility] UROBILINOGEN NORMAL 0.2 - 1.0 EU/DL 04/26/2025 2:04 PM CDT [facility] BILIRUBIN (U) NEGATIVE NEGATIVE 04/26/2025 2:04 PM CDT [facility] BLOOD (U) NEGATIVE NEGATIVE 04/26/2025 2:04 PM CDT [facility] URINE SPECIMEN OBTAINED BY CLEAN CATCH PROCEDURE / Unknown 04/26/2025 1:45 PM CDT Pauly Valero MD URINE ORDERABLES Final Result [facility] [address] [place] [address], [place] * XR CHEST PORTABLE (04/26/2025 1:16 PM CDT) Anatomical Region Laterality Modality Chest Computed Tomogra phy 04/26/2025 1:17 PM CDT Impressions 04/26/2025 1:18 PM CDT IMPRESSION: Stable chest Ordered By: PAULY VALERO Interpreted By: Tim Gray MD, 04/26/2025 1:17 PM Narrative 04/26/2025 1:18 PM CDT [address] [place] [address] SINGLE VIEW OF THE CHEST Clinical history: Shortness of breath Comparison: December 03, 2024 A single view of the chest demonstrates the cardiac silhouette to be normal in size and appears stable. Calcified pleural plaquing is again demonstrated on the left which is unchanged. Hyperinflation, especially on the right remains stable. No areas of acute consolidation are noted Procedure Note Tim Gray MD - 04/26/[address] [place] [address] SINGLE VIEW OF THE CHEST Clinical history: Shortness of breath Comparison: December 03, 2024 A single view of the chest demonstrates the cardiac silhouette to benormal in size and appears stable. Calcified pleural plaquing is againdemonstrated on the left which is unchanged. Hyperinflation, especially onthe right remains stable. No areas of acute consolidation are noted IMPRESSION: Stable chest Ordered By: PAULY VALERO Interpreted By: Tim Gray MD, 04/26/2025 1:17 PM Pauly Valero MD GENERAL IMAGING Final Result * PRO-BRAIN NATRIURETIC PEPTIDE (04/26/2025 1:15 PM CDT) PRO-BRAIN NATRIURETIC PEPTIDE 239 0 - 450 PG/ML 04/26/2025 2:03 PM CDT [facility] Comment: CUT POINTS ESTABLISHED BY INTERNATIONAL COLLABORATIVE ON NT PROBNP (ICON) STUDY (2006). AGE INDEPENDENT: <300 PG/ML HAS A 99% NEGATIVE PREDICTIVE VALUE FOR EXCLUDING ACUTE CHF <50 YEARS: >450 PG/ML IS CONSISTENT WITH ACUTE CHF 50-75 YEARS: >900 PG/ML IS CONSISTENT WITH ACUTE CHF >75 YEARS: >1800 PG/ML IS CONSISTENT WITH ACUTE CHF IN PATIENTS WITH RENAL INSUFFICIENCY (GFR <60), >1200 PG/ML YIELDS A DIAGNOSTIC SENSITIVITY AND SPECIFICITY OF 89% AND 72% FOR ACUTE CHF. 04/26/2025 1:15 PM CDT us Pauly Valero MD LABORATORY Final Result [address] [address], * (ABNORMAL) COMPREHENSIVE METABOLIC PANEL (04/26/2025 1:15 PM CDT) [facility] GLUCOSE 138(H) 70 - 99 MG/DL 04/26/2025 2:03 PM CDT [facility] BUN 11 7 - 18 MG/DL 04/26/2025 2:03 PM CDT [facility] CREATININE S/P/B 0.92 0.50 - 1.20 MG/DL 04/26/2025 2:03 PM CDT [facility] SODIUM S/P/B 135(L) 136 - 145 MMOL/L 04/26/2025 2:03 PM CDT [facility] POTASSIUM S/P/B 4.2 3.5 - 5.1 MMOL/L 04/26/2025 2:03 PM CDT [facility] CHLORIDE S/P/B 94(L) 100 - 108 MMOL/L 04/26/2025 2:03 PM CDT [facility] CO2 26.7 21.0 - 32.0 MMOL/L 04/26/2025 2:03 PM CDT [facility] CALCIUM S/P/B 8.7 8.5 - 10.1 MG/DL 04/26/2025 2:03 PM CDT [facility] BILIRUBIN TOTAL S/P/B 0.6 0.2 - 1.2 MG/DL 04/26/2025 2:03 PM CDT [facility] Comment: THIS ASSAY IS NOT RECOMMENDED FOR PATIENTS UNDERGOING TREATMENT WITH ELTROMBOPAG DUE TO THE POTENTIAL FOR FALSELY ELEVATED RESULTS. TOTAL PROTEIN S/P/B 7.9 6.4 - 8.2 G/DL 04/26/2025 2:03 PM CDT [facility] ALBUMIN S/P/B 4.4 3.4 - 5.0 G/DL 04/26/2025 2:03 PM CDT [facility] AST 27 15 - 37 U/L 04/26/2025 2:03 PM CDT [facility] ALT 24 16 - 60 U/L 04/26/2025 2:03 PM CDT [facility] ALKALINE PHOSPHATASE S/P/B 92 50 - 136 U/L 04/26/2025 2:03 PM CDT [facility] ANION GAP 14.3 5.0 - 15.0 MMOL/L 04/26/2025 2:03 PM CDT [facility] BUN CREATININE RATIO 12.0 6 - 26 04/26/2025 2:03 PM T [facility] A/G RATIO 1.3 1.0 - 2.5 RATIO 04/26/2025 2:03 PM CDT [facility] GFR ESTIMATE 87(L) >90 ML/MIN/1.7 3 M2 04/26/2025 2:03 PM T [facility] Comment: NOTE: eGFR is not calculated for patients <18 years of age or gender unknown. This is an estimated GFR calculation using the new CKD EPI creatinine equation without race and so does not require a correction factor for race. This estimated GFR should not be used for calculating drug doses. 04/26/2025 1:15 PM CDT Pauly Valero MD LABORATORY Final Result [address] [place] [address], [place] * (ABNORMAL) CBC W/DIFF AUTOMATED (04/26/2025 1:15 PM CDT) WBC 13.62(H) 4.50 - 11.00 x10'3/uL 04/26/2025 1:34 PM CDT [facility] RBC 4.77 4.50 - 5.90 x10'6/uL 04/26/2025 1:34 PM CDT [facility] HGB 14.2 14.0 - 18.0 G/DL 04/26/2025 1:34 PM CDT [facility] HCT 44.4 43.0 - 54.0 % 04/26/2025 1:34 PM CDT [facility] MCV 93.1 80.0 - 100.0 FL 04/26/2025 1:34 PM CDT [facility] MCH 29.8 26.0 - 34.0 PG 04/26/2025 1:34 PM CDT [facility] MCHC 32.0 31.0 - 37.0 G/DL 04/26/2025 1:34 PM CDT [facility] RDW 14.7 11.6 - 14.8 % 04/26/2025 1:34 PM CDT [facility] PLT 273 130 - 400 x10'3/uL 04/26/2025 1:34 PM CDT [facility] MPV 10.2 7.0 - 12.0 FL 04/26/2025 1:34 PM CDT [facility] CBC COMMENT AUTOMATED RBC MORPHOLOGY AND PLATELET EVALUATION NORMAL 04/26/2025 1:34 PM CDT [facility] NEUTROPHILS % 73.5 40.0 - 74.0 % 04/26/2025 1:34 PM CDT [facility] LYMPHOCYTES % 16.9 14.0 - 46.0 % 04/26/2025 1:34 PM CDT [facility] MONOCYTES % 8.6 4.0 - 13.0 % 04/26/2025 1:34 PM CDT [facility] EOSINOPHILS 0.2 0.0 - 7.0 % 04/26/2025 1:34 PM CDT [facility] BASOPHILS 0.4 0.0 - 3.0 % 04/26/2025 1:34 PM CDT [facility] IMMATURE GRANS % 0.4 0.0 - 0.43 % 04/26/2025 1:34 PM CDT [facility] NRBC % 0.0 % 04/26/2025 1:34 PM CDT [facility] ABS. NEUTROPHILS TOTAL 10.01(H) 1.69 - 7.81 x10'3/uL 04/26/2025 1:34 PM CDT [facility] ABS. LYMPHOCYTES 2.30 0.21 - 5.42 x10'3/uL 04/26/2025 1:34 PM CDT [facility] ABS. MONOCYTES 1.17 0.04 - 1.37 x10'3/uL 04/26/2025 1:34 PM CDT [facility] ABS. EOSINOPHILS 0.03 0.00 - 0.68 x10'3/uL 04/26/2025 1:34 PM CDT [facility] ABS. BASOPHILS 0.05 0.00 - 0.08 x10'3/uL 04/26/2025 1:34 PM CDT [facility] ABS. IMMATURE GRANULOCYTES 0.06 0.00 - 0.06 x10'3/uL 04/26/2025 1:34 PM CDT [facility] ABS. NUCLEATED RBC'S 0.00 0.00 - 0.01 x10'3/uL 04/26/2025 1:34 PM CDT [facility] 04/26/2025 1:15 PM CDT Pauly Valero MD LABORATORY Final Result Performing Organization Address [facility]/ZIP Co de Phone Number [facility] [address] [place] [place] [address], [place] * TROPONIN, QUANT (04/26/2025 1:15 PM CDT) Pathologist [facility] TROPONIN I HIGH SENSITIVITY 10 0 - 79 ng/L 04/26/2025 2:03 PM CDT [facility] Comment: HIGH DOSES OF BIOTIN, TROPONIN-SPECIFIC AUTOANTIBODIES, AND ANTIBODY THERAPY CONTAINING HAMA MAY INTERFERE WITH THIS TEST RESULT. CORRELATION TO CLINICAL HISTORY AND PRESENTATION RECOMMENDED. 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1950 Requested By: PAULY VALERO Order Number: [id number] Woody MD: Yeison Fernandes Measurements Intervals [place] Rate: 104 P: 87 HI: 139 QRS: 80 QRSD: 90 T: 58 QT: 333 QTc: 439 Interpretive Statements SINUS TACHYCARDIA POSSIBLE RIGHT ATRIAL ENLARGEMENT [0.25mV P WAVE] LEFT ATRIAL ENLARGEMENT [-0.15mV P WAVE IN V1/V2] Procedure Note Yeison Fernandes MD - 04/27/2025 [facility] Test Date: 2025-04-26 Pat Name: GUILLERMO FINN Department: 100 Room: 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1950 Requested By: PAULY VALERO Order Number: [id number] Reading MD: Yeison Fernandes Measurements Intervals [place] Rate: 104 P: 87 HI: 139 QRS: 80 QRSD: 90 T: 58 QT: 333 QTc: 439 Interpretive Statements SINUS TACHYCARDIA POSSIBLE RIGHT ATRIAL ENLARGEMENT [0.25mV P WAVE] LEFT ATRIAL ENLARGEMENT [-0.15mV P WAVE IN V1/V2] us Pauly Valero MD ECG ORDERABLES Final Result [address] [address] * CT CHEST WO CONT LOW DOSE (11/11/2024 9:03 AM [employer]) Anatomical Region Laterality Modality Chest Computed Tomogra phy 11/12/2024 8:15 AM [employer] Impressions 11/12/2024 8:26 AM INS[employer] SAL[employer] IMPRESSION: 1. Decrease in size of spiculated lesion in the right lung apex as detailed above.. 2. Decreased size of opacity in medial right lung base. Most likely atelectasis versus scar. 3. No pathologic lymphadenopathy on this noncontrast study. Stable advanced emphysematous change. Stable dense pleural plaque formation.. 4. Development of left upper lobe linear atelectasis. Referred By: RENATA PASCAL Interpreted By: Christophe Tolbert MD, 11/12/2024 8:15 AM Narrative 11/12/2024 8:26 AM INSIDE PHONE SALES [place] [id number] EXAMINATION: CT CHEST WITHOUT CONTRAST EXAM DATE/TIME: 11/11/2024 8:55 AM REASON FOR EXAM: follow up Lung nodule. Bronchoscopy on 06/18/2024 demonstrated nonspecific inflammation in right upper lobe nodule. Prior tobacco use. COMPARISON: 07/18/2024. More remote 09/09/2016. TECHNIQUE: Computed tomography was performed of the chest without intravenous contrast. A dose lowering technique was used for this procedure, which may include, but is not limited to, dose reduction technique, automated exposure control, iterative reconstruction, ALARA (As Low As Reasonably Achievable), or Image Gently techniques. FINDINGS: On lung windows, no patchy infiltrate, pneumothorax, or pleural effusion. Stable advanced emphysematous change. Stable dense pleural plaques, greater on the left side. Stable scar formation in left lower lobe. Development of linear atelectasis in left upper lobe. Slight decrease in size of opacity in medial right lung base on image 101 of series 8. Most likely atelectasis/scar. Measures 7.5 mm. Prior measurement of 8.5 mm. Less prominent spiculated lesion in right lung apex on image 22. Measures 12.9 x 10.9 mm. Prior measurement of 16.4 x 12.9 mm. On soft tissue windows, no axillary or supraclavicular lymphadenopathy. On mediastinal windows, no evidence of hilar or mediastinal lymphadenopathy. Heart size normal. No pericardial effusion.. Calcified mediastinal and right hilar lymph nodes. Calcified right-sided granulomas. Moderate coronary artery calcifications. Limited evaluation of the upper abdomen demonstrates no acute abnormality. On bone windows, no suspicious skeletal lesion or acute compression fracture deformity. Procedure Note Christophe Tolbert MD - 11/12/[address] [place] [address] EXAMINATION: CT CHEST WITHOUT CONTRAST EXAM DATE/TIME: 11/11/2024 8:55 AM REASON FOR EXAM: follow up Lung nodule. Bronchoscopy on 06/18/2024 demonstrated nonspecificinflammation in right upper lobe nodule. Prior tobacco use. COMPARISON: 07/18/2024. More remote 09/09/2016. TECHNIQUE: Computed tomography was performed of the chest withoutintravenous contrast. A dose lowering technique was used for this procedure, which may include,but is not limited to, dose reduction technique, automated exposurecontrol, iterative reconstruction, ALARA (As Low As ReasonablyAchievable), or Image Gently techniques. FINDINGS: On lung windows, no patchy infiltrate, pneumothorax, or pleural effusion.Stable advanced emphysematous change. Stable dense pleural plaques,greater on the left side. Stable scar formation in left lower lobe. Development of linear atelectasis in left upper lobe. Slight decrease insize of opacity in medial right lung base on image 101 of series 8. Mostlikely atelectasis/scar. Measures 7.5 mm. Prior measurement of 8.5 mm. Less prominent spiculated lesion in right lung apex on image 22. [id number] x 10.9 mm. Prior measurement of 16.4 x 12.9 mm. On soft tissue windows, no axillary or supraclavicular lymphadenopathy. On mediastinal windows, no evidence of hilar or mediastinallymphadenopathy. Heart size normal. No pericardial effusion.. Calcifiedmediastinal and right hilar lymph nodes. Calcified right-sidedgranulomas. Moderate coronary artery calcifications. Limited evaluation of the upper abdomen demonstrates no acuteabnormality. On bone windows, no suspicious skeletal lesion or acute compressionfracture deformity. IMPRESSION: 1. Decrease in size of spiculated lesion in the right lung apex asdetailed above.. 2. Decreased size of opacity in medial right lung base. Most likelyatelectasis versus scar. 3. No pathologic lymphadenopathy on this noncontrast study. Stableadvanced emphysematous change. Stable dense pleural plaque formation.. 4. Development of left upper lobe linear atelectasis. Referred By: RENATA PASCAL Interpreted By: Christophe Tolbert MD, 11/12/2024 8:15 AM us Renata Pascal MD CT Final Result from Last 3 Months or Most Recently Relevant to Health Maintenance Insurance MEDICARE [facility] Advance Directives * Full Code (Latest Code Status on File) Date Activated Date Inactivated Comments 06/18/2024 5:52 PM 06/19/2024 3:54 PM * Full Code Date Activated Date Inactivated Comments 01/06/2023 12:17 AM 01/07/2023 12:04 PM Care Teams Csr Relationship Specialty Start Date End Date Annette Hernandez ANP- [address] [place] [address] PCP - General FAMILY PRACTICE 01/05/23
--- OUTSIDE RECORDS SUMMARY | 2025-05-07 01:46 | XMS_ITS | Encounter Summary ---
Author Organization [facility] Address [address] [place] [address] Care Team Providers Care Small Business Representative Name Role Phone Avi Bonds MD Primary Care Provider + [phone] Gasper Gauthier MD [facility] Shanta Parrish MD Primary Care Provider [phone] Annette Hernandez [facility] Primary Care Provider Encounter Details Date Type Department Care Team (Late st Contact Info) Description 03/16/2017 Abstract [facility] [address] [place] [address] Gasper Gauthier MD Social History Tobacco Use Types Packs/Day Years Used Date Smoking Tobacco: Every Day Alcohol Use Standard Drinks/Week Comments Yes 0 (1 standard drink = 0.6 oz pur e alcohol) daily Sex and Gender Information Value Date Recorded Sex Assigned at Male 12/03/2024 11:28 AM CATERING SALES MANAGER Legal Sex Male 9:45 AM CDT Gender Identity Not on file Sexual Orientation Not on file 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 Not on file Not on file Not on jerson e documented as of this encounter Plan of Treatment Upcoming Encounters Date Type Department Care Team (Late st Contact Info) Description 05/16/2025 10:30 AM CDT Appointment [address] [place], [place] [id number] Hernan Dunbar MD [facility] [address] [place] [address] 06/11/2025 9:40 AM CDT Office Visit [facility] - [address] [place] [address] Hernan Dunbar MD [facility] [address] [place] [address] documented as of this encounter Visit Diagnoses Not on filedocumented in this encounter Additional Health Concerns Infection Onset Date Last Indicated Resolved Time COVID-19 Rule Out 06/11/2022 06/11/2022 06/12/2022 1:54 PM CDT COVID-19 Confirmed 06/11/2022 06/11/2022 12:33 AM CDT COVID-19 Rule Out 01/05/2023 01/05/2023 01/05/2023 9:59 PM CATERING SALES MANAGER documented as of this encounter Care Teams Small Business Representative Relationship Specialty Start Date End Date Avi Bonds MD [address] [place] [address] PCP - General FAMILY PRACTICE 03/14/17 04/29/20 Shanta Azar MD [address] [place] [id number] PCP - General INTERNAL MEDICINE 03/04/22 01/04/23 Annette Hernandez, [facility]- [address] [place] [address] PCP - General FAMILY PRACTICE 01/05/23 Gasper Gauthier MD [address] [place] [address] CARDIOVASCULAR DISEASE 03/14/1703/03 documented as of this encounter
--- OUTSIDE RECORDS SUMMARY | 2025-05-07 01:46 | XMS_ITS | Encounter Summary ---
Author Organization [facility] Address [facility] [place] [address] Care Team Providers Care Framer Name Role Phone Shanta Azar MD Primary Care Provider [phone] Annette Hernandez [facility] Primary Care Provider Encounter Details Date Type Department Care Team (Late Contact Info) Description 2022 Prep for Procedure [facility] [address] [place], [place] [id number] Raul Rock MD [address] [place] [id number] Social History Tobacco Use Types Packs/Day Years Used Date Smoking Tobacco: Every Day Cigarettes 0.5 30 Smokeless Tobacco: Never Chew Alcohol Use Standard Drinks/Week Comments Yes 0 (1 standard drink = 0.6 oz pur e alcohol) daily Sex and Gender Information Value Date Recorded Sex Assigned at Male 12/03/2024 11:28 AM BORDER POLICE Legal Sex Male 9:45 AM CDT Gender Identity Not on file Sexual Orientation Not on file 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 Not on file Not on jerson e documented as of this encounter Plan of Treatment Upcoming Encounters Date Type Department Care Team (Late Contact Info) Description 05/16/2025 10:30 AM CDT [facility] [address] [address] Hernan Dunbar MD 3 [facility] [address] [place] [address] 06/11/2025 9:40 AM CDT Office Visit [facility] - [address] [place] [address] Hernan Dunbar MD [address] [facility] [address] [place] [address] documented as of this encounter Results * (ABNORMAL) CORONAVIRUS (COVID 19) PCR (06/11/2022 8:52 AM CDT) SPEC DESCRIPTION NASAL 06/11/20 8:48 AM CDT [facility] CORONAVIRUS SARS COV 2 PCR (RESP) POSITIVE(A A) NEGATIVE 06/12/2022 1:54 PM CDT [facility] Comment: THE SARS-CoV-2 TEST HAS BEEN AUTHORIZED BY THE FDA UNDER AN EUA FOR USE BY AUTHORIZED LABORATORIES. PERFORMED BY NUCLEIC ACID AMPLIFICATION PCR FIRST TEST UNKNOWN 06/11/2022 8:48 AM CDT [facility] EMPLOYED IN HEALTHCARE NO 06/11/2022 8:48 AM CDT [facility] SYMPTOMATIC DEFINED BY CDC NO 06/11/2022 8:48 AM CDT [facility] HOSPITALIZATION STATUS NO 06/11/2022 8:48 AM CDT [facility] 06/11/2022 8:48 AM CDT [facility] NASAL STRUCTURE / Unknown 06/11/2022 8:52 AM CDT Raul Rock MD MICROBIOLOGY - GENERAL ORDERABLE S Final Result [facility] [address] [facility] [facility] [address] [address], [facility] [address] [place] [address], documented in this encounter Visit Diagnoses Diagnosis Preop testing- Primary Preoperative examination, unspecified documented in this encounter Additional Health Concerns Infection Onset Date Last Indicated Resolved Time COVID-19 Rule Out 06/11/2022 06/11/2022 06/12/2022 1:54 PM CDT COVID-19 Confirmed 06/11/2022 06/11/2022 12:33 AM CDT COVID-19 Rule Out 01/05/2023 01/05/2023 01/05/2023 9:59 PM BORDER POLICE documented as of this encounter Care Teams Framer Relationship Specialty Start Date End Date Shanta Azar MD [address] [place] [address] PCP - General INTERNAL MEDICINE 03/04/22 01/04/23 Annette Hernandez, ANP- [address] [place] [address] PCP - General FAMILY PRACTICE 01/05/23 documented as of this encounter
[2025-05-07] MEDS: methylPREDNISolone SOD SUCC 125 MG VIAL IV PUSH (02:37)
[2025-05-07] MEDS: IPRATROPIUM 0.5 MG/ALBUTEROL SULFATE 2.5 MG AMPUL.NEB 3 ML INHALATION (02:45)
[2025-05-07 03:24] LABS: Add Urine Microscopic? YES; Appearance Urine Turbid (Clear); Bacteria Urine None Seen /hpf; Bilirubin Urine Negative (Negative); Blood Urine 2+ (Negative); Budding Yeast Urine Present /hpf; Color Urine Yellow (Yellow); Glucose Urine UA Negative (Negative); Ketones Urine Negative (Negative); Leukocyte Esterase Ur 2+ LEU/UL (Negative); Need Manual Microscopic Reviewed; Nitrate Urine Negative (Negative); Non Pathogenic Casts 0-2; Protein Urine 2+ mg/dL (Negative); RBC Urine 21-50 /hpf (0-2); Specific Grav Ur > 1.045 (1.001-1.035); Squamous Epithelial Cell Urine None Seen /hpf (Few); WBC Urine >100 /hpf (0-3)
== END 2025-05-07 04:14 | disposition home or self-care (01) ==
PROVIDERS: Emergency Provider Physician Assistant; PCP Physician Assistant
DX: T83.091A Other mechanical complication of indwelling urethral catheter, initial encounter (principal); J44.1 Chronic obstructive pulmonary disease with (acute) exacerbation; R06.02 Shortness of breath; I10 Essential (primary) hypertension; F17.200 Nicotine dependence, unspecified, uncomplicated; Y84.6 Urinary catheterization as the cause of abnormal reaction of the patient, or of later complication, without mention of misadventure at the time of the procedure
CPT/HCPCS: 36415; 51702; 71046; 71275; 80053; 81001; 83880; 85025; 85610; 85730; 87077; 87086; 87186; 93005; 94640; 96374; 99284; J1200; J2919; Q9967